=== PATIENT | male | born 1995 | race Caucasian/White ===

== ENCOUNTER 2019-03-03 07:28 | Inpatient (IN) | payer MEDICAID ==
[~2019-03-03] VITALS: Ht 167.6 cm; Wt 94.9 kg
[2019-03-03 08:47] VITALS: BP 112/78
[2019-03-03] MEDS ORDERED: HALO1 PO (09:02)
[2019-03-03] MEDS ORDERED: DIVA125T32 PO (09:02)
[2019-03-03] MEDS ORDERED: HALOPERIDOL 5 MG TABLET PO PRN (09:30)
[2019-03-03] MEDS ORDERED: LORazepam 2 MG TABLET PO PRN (09:30)
[2019-03-03] MEDS ORDERED: ZOLPIDEM TARTRATE 10 MG TABLET PO PRN (09:30)
[2019-03-03 16:14] VITALS: BP 142/91
[2019-03-03] MEDS: HALOPERIDOL 5 MG TABLET PO PRN (16:16)
[2019-03-03] MEDS: LORazepam 2 MG TABLET PO PRN (16:16)
[2019-03-03] MEDS: RisperiDONE 2 MG TABLET PO SCH (20:53)
[2019-03-03] MEDS: DIVALPROEX SODIUM 500 MG DR TABLET PO SCH (20:53)
[2019-03-04] MEDS ORDERED: CloNIDine HCL 0.1 MG TABLET PO PRN (06:30)
[2019-03-04] MEDS ORDERED: DOCUSATE SODIUM 100 MG CAPSULE PO PRN (06:30)
[2019-03-04] MEDS ORDERED: ALBUTEROL SULFATE HFA 90 MCG/PUFF 8 GM INHALER IH PRN (06:30)
[2019-03-04] MEDS ORDERED: ACETAMINOPHEN 325 MG TABLET PO PRN (06:30)
[2019-03-04] MEDS ORDERED: MAG HYDROX/AL HYDROX/SIMETH ES 30 ML SUSPENSION UDCUP PO PRN (06:30)
[2019-03-04] MEDS ORDERED: ONDANSETRON HCL 4 MG TABLET PO PRN (06:30)
[2019-03-04] MEDS ORDERED: NICOTINE 14 MG/24 HOUR PATCH TD PRN (06:30)
[2019-03-04] MEDS ORDERED: MAGNESIUM HYDROXIDE SUSPENSION 30 ML UDCUP PO PRN (06:30)
[2019-03-04] MEDS ORDERED: GuaiFENesin/D-METHORPHAN [SUGAR-FREE] 200-20MG/10 ML SYRUP UDCUP PO PRN (06:30)
[2019-03-04] MEDS ORDERED: PETROLATUM,WHITE 28 GM JELLY TP PRN (06:30)
[2019-03-04] MEDS ORDERED: LOPERAMIDE HCL 2 MG CAPSULE PO PRN (06:30)
[2019-03-04 06:46] VITALS: BP 101/59
[2019-03-04 08:00] VITALS: BP 122/67
[2019-03-04] MEDS: DIVALPROEX SODIUM 500 MG DR TABLET PO SCH ×2 (08:01→20:20)
[2019-03-04] MEDS: RisperiDONE 2 MG TABLET PO SCH ×2 (08:01→20:20)
[2019-03-04 16:04] VITALS: BP 123/75
[2019-03-04] MEDS: HALOPERIDOL 5 MG TABLET PO PRN (17:32)
[2019-03-04] MEDS: LORazepam 2 MG TABLET PO PRN (17:32)
[2019-03-05 07:10] VITALS: BP 115/72
[2019-03-05 07:24] LABS: BASOPHILS % (AUTO) 0.7 % (0.0-2.0); EOSINOPHILS % (AUTO) 1.7 % (1.0-6.0); HEMATOCRIT 43.2 % (41-53); HEMOGLOBIN 14.6 g/dL (13.5-17.5); LYMPHOCYTES # (AUTO) 2.5 K/uL (1.0-4.8); LYMPHOCYTES % (AUTO) 33.9 % (22.0-44.0); MEAN CORPUSCULAR HGB CONC 33.8 G/dL (31.0-37.0); MEAN CORPUSCULAR VOLUME 86 fL (80-100); MONOCYTES # (AUTO) 0.6 K/uL (0.1-1.0); MONOCYTES % (AUTO) 8.2 % (2.0-9.0); NEUTROPHILS # (AUTO) 4.1 K/uL (1.8-7.7); NEUTROPHILS % (AUTO) 55.5 % (40.0-70.0); PLATELET COUNT (AUTO) 215 K/uL (150-450); RED BLOOD CELL COUNT(AUTO) 5.03 MIL/uL (4.50-5.90); RED CELL DISTRIBUTION WIDTH 14.2 % (11.5-14.5)
[2019-03-05 07:49] LABS: HEMOGLOBIN A1C 5.5 % (4.5-6.2)
[2019-03-05 07:54] LABS: ALANINE AMINOTRANSFERASE 15 U/L (12-78); ALBUMIN 3.5 g/dL (3.4-5.0); ALKALINE PHOSPHATASE 60 U/L (46-116); ANION GAP 7 mmol/L (8-16); ASPARTATE AMINOTRANSFERASE 10 U/L (15-37); BILIRUBIN,TOTAL 0.2 mg/dL (0.1-1.0); CALCIUM, TOTAL 8.5 mg/dL (8.8-10.5); CARBON DIOXIDE 28 mmol/L (22-29); CHLORIDE 106 mmol/L (98-107); CHOL/HDL RATIO 2.5 (4.2-7.3); CHOLESTEROL 96 mg/dL (131-200); CREATININE 0.92 mg/dL (0.60-1.30); GLOMERULAR FILTR. RATE CALC > 60 mL/min (>60); GLUCOSE,RANDOM 84 mg/dL (70-110); HDL CHOLESTEROL 39 mg/dL (40-60); LDL CHOL (CALC.) 51 mg/dL (0-130); POTASSIUM 4.4 mmol/L (3.5-5.1); SODIUM SERUM 141 mmol/L (136-145); THYROID STIMULATING HORMONE 6.12 uIU/mL (0.36-3.74); TOTAL PROTEIN, SERUM 6.9 g/dL (6.4-8.2); TRIGLYCERIDES 28 mg/dL (15-150); UREA NITROGEN, BLOOD 14 mg/dL (7-18)
[2019-03-05 08:05] VITALS: BP 115/67
[2019-03-05] MEDS: RisperiDONE 2 MG TABLET PO SCH ×2 (08:09→20:21)
[2019-03-05] MEDS: DIVALPROEX SODIUM 500 MG DR TABLET PO SCH ×2 (08:09→20:21)
[2019-03-05] MEDS: HALOPERIDOL 5 MG TABLET PO PRN (12:28)
[2019-03-05 16:02] VITALS: BP 120/74
[2019-03-05] MEDS: LORazepam 2 MG TABLET PO PRN (20:21)
[2019-03-06 05:04] VITALS: BP 113/72
[2019-03-06] MEDS: RisperiDONE 2 MG TABLET PO SCH ×2 (08:31→20:15)
[2019-03-06] MEDS: DIVALPROEX SODIUM 500 MG DR TABLET PO SCH ×2 (08:31→20:15)
[2019-03-06] MEDS: LORazepam 2 MG TABLET PO PRN ×2 (11:10→20:15)
[2019-03-06] MEDS: HALOPERIDOL 5 MG TABLET PO PRN (11:10)
[2019-03-06 16:00] VITALS: BP 125/80
[2019-03-06] MEDS: ZOLPIDEM TARTRATE 10 MG TABLET PO PRN (20:16)
[2019-03-07 05:10] VITALS: BP 125/77
[2019-03-07 05:18] VITALS: BP 114/78
[2019-03-07 05:48] VITALS: BP 125/77
[2019-03-07] MEDS: DIVALPROEX SODIUM 500 MG DR TABLET PO SCH ×2 (08:23→20:11)
[2019-03-07] MEDS: RisperiDONE 2 MG TABLET PO SCH ×2 (08:25→20:11)
[2019-03-07] MEDS: HALOPERIDOL 5 MG TABLET PO PRN (14:14)
[2019-03-07] MEDS: LORazepam 2 MG TABLET PO PRN (14:15)
[2019-03-07 16:05] VITALS: BP 140/76
[2019-03-07] MEDS: ZOLPIDEM TARTRATE 10 MG TABLET PO PRN (21:54)
[2019-03-08 06:28] VITALS: BP 128/83
[2019-03-08 08:06] VITALS: BP 110/72
[2019-03-08] MEDS: RisperiDONE 2 MG TABLET PO SCH ×2 (08:37→20:16)
[2019-03-08] MEDS: DIVALPROEX SODIUM 500 MG DR TABLET PO SCH ×2 (08:38→20:15)
[2019-03-08] MEDS: IBUPROFEN 400 MG TABLET PO PRN ×2 (09:56→21:06)
[2019-03-08 16:08] VITALS: BP 133/83
[2019-03-08] MEDS: HALOPERIDOL 5 MG TABLET PO PRN (17:49)
[2019-03-08] MEDS: LORazepam 2 MG TABLET PO PRN (17:49)
[2019-03-08] MEDS: ZOLPIDEM TARTRATE 10 MG TABLET PO PRN (21:07)
[2019-03-09 00:56] VITALS: BP 119/78
[2019-03-09] MEDS: HALOPERIDOL 5 MG TABLET PO PRN ×2 (05:24→14:34)
[2019-03-09] MEDS: RisperiDONE 2 MG TABLET PO SCH ×2 (08:17→21:20)
[2019-03-09] MEDS: DIVALPROEX SODIUM 500 MG DR TABLET PO SCH ×2 (08:17→21:20)
[2019-03-09] MEDS: LORazepam 2 MG TABLET PO PRN (16:14)
[2019-03-09 16:20] VITALS: BP 142/87
[2019-03-09] MEDS: ZOLPIDEM TARTRATE 10 MG TABLET PO PRN (21:20)
[2019-03-10 06:05] VITALS: BP 113/70
[2019-03-10 08:23] VITALS: BP 140/74
[2019-03-10] MEDS: RisperiDONE 2 MG TABLET PO SCH ×2 (08:28→20:49)
[2019-03-10] MEDS: MULTIVITAMINS WITH MINERALS, THERAPEUTIC TABLET PO SCH (08:29)
[2019-03-10] MEDS: DIVALPROEX SODIUM 500 MG DR TABLET PO SCH ×2 (08:29→20:49)
[2019-03-10 16:00] VITALS: BP 124/73
[2019-03-10] MEDS: LORazepam 2 MG TABLET PO PRN ×2 (16:27→20:59)
[2019-03-10] MEDS: LITHIUM CARBONATE 300 MG CAPSULE PO SCH (16:27)
[2019-03-10] MEDS: ZOLPIDEM TARTRATE 10 MG TABLET PO PRN (20:49)
[2019-03-11 05:52] VITALS: BP 135/75
[2019-03-11] MEDS: LITHIUM CARBONATE 300 MG CAPSULE PO SCH ×2 (07:03→16:45)
[2019-03-11] MEDS: DIVALPROEX SODIUM 500 MG DR TABLET PO SCH ×2 (08:02→20:51)
[2019-03-11] MEDS: RisperiDONE 2 MG TABLET PO SCH ×2 (08:02→20:51)
[2019-03-11] MEDS: MULTIVITAMINS WITH MINERALS, THERAPEUTIC TABLET PO SCH (08:02)
[2019-03-11] MEDS: IBUPROFEN 400 MG TABLET PO PRN ×2 (08:04→21:00)
[2019-03-11 08:12] VITALS: BP 126/86
[2019-03-11 16:05] VITALS: BP 136/88
[2019-03-11] MEDS: LORazepam 2 MG TABLET PO PRN (16:46)
[2019-03-11] MEDS: ZOLPIDEM TARTRATE 10 MG TABLET PO PRN (20:51)
[2019-03-12 04:48] VITALS: BP 142/99
[2019-03-12] MEDS: IBUPROFEN 400 MG TABLET PO PRN (04:50)
[2019-03-12] MEDS: LITHIUM CARBONATE 300 MG CAPSULE PO SCH ×2 (07:00→16:54)
[2019-03-12 08:06] VITALS: BP 102/64
[2019-03-12] MEDS: RisperiDONE 2 MG TABLET PO SCH ×2 (08:35→21:00)
[2019-03-12] MEDS: DIVALPROEX SODIUM 500 MG DR TABLET PO SCH ×2 (08:36→21:00)
[2019-03-12] MEDS: MULTIVITAMINS WITH MINERALS, THERAPEUTIC TABLET PO SCH (08:36)
[2019-03-12] MEDS: LORazepam 2 MG TABLET PO PRN (10:55)
[2019-03-12 14:20] VITALS: BP 116/56
[2019-03-13] MEDS: LITHIUM CARBONATE 300 MG CAPSULE PO SCH ×2 (07:00→16:42)
[2019-03-13] MEDS: RisperiDONE 2 MG TABLET PO SCH ×2 (09:00→21:00)
[2019-03-13] MEDS: DIVALPROEX SODIUM 500 MG DR TABLET PO SCH ×2 (09:00→21:00)
[2019-03-13] MEDS: MULTIVITAMINS WITH MINERALS, THERAPEUTIC TABLET PO SCH (09:00)
== END 2019-03-13 21:00 | disposition short-term general hospital (02) | DRG 750 ==
LOC: B3A 09:26
PROVIDERS: ADMIT Psychiatry & Neurology Child & Adolescent Psychiatry; ATTEND Psychiatry & Neurology Child & Adolescent Psychiatry
DX: F20.0 Paranoid schizophrenia (principal); G93.40 Encephalopathy, unspecified; A41.9 Sepsis, unspecified organism; J18.9 Pneumonia, unspecified organism; G44.209 Tension-type headache, unspecified, not intractable; Z79.899 Other long term (current) drug therapy
CPT/HCPCS: 83036; 84443; 87081

== ENCOUNTER 2019-03-17 19:47 | Inpatient (IN) | payer MEDICAID ==
[~2019-03-17] VITALS: Ht 170.2 cm; Wt 93.6 kg
[2019-03-17 19:30] VITALS: BP 122/69
[2019-03-17 20:51] VITALS: BP 122/69
[2019-03-17] MEDS: RisperiDONE 4 MG TABLET PO SCH (21:34)
[2019-03-17] MEDS: DIVALPROEX SODIUM 500 MG DR TABLET PO SCH (21:35)
[2019-03-17] MEDS: LITHIUM CARBONATE 300 MG CAPSULE PO SCH (21:35)
[2019-03-17 22:45] LABS: APPEARANCE,URINE CLEAR (CLEAR); BILIRUBIN,URINE NEGATIVE (NEGATIVE); GLUCOSE, URINE (UA) NEGATIVE (NEGATIVE); KETONES,URINE NEGATIVE (NEGATIVE); LEUKOCYTE ESTERASE ,URINE NEGATIVE (NEGATIVE); NITRATE,URINE NEGATIVE (NEGATIVE); OCCULT BLOOD,URINE NEGATIVE (NEGATIVE); PH,URINE 6.5 (5.0-8.0); PROTEIN,URINE NEGATIVE (NEGATIVE); UROBILINOGEN,URINE 0.2 mg/dL (<=1.0)
[2019-03-17 22:49] LABS: AMPHET/METH SCREEN,URINE NEGATIVE (NEGATIVE); BARBITURATE SCREEN, URINE NEGATIVE (NEGATIVE); BENZODIAZEPINES SCREEN,URINE NEGATIVE (NEGATIVE); CANNABINOID SCREEN,URINE NEGATIVE (NEGATIVE); COCAINE SCREEN,URINE NEGATIVE (NEGATIVE); METHADONE SCREEN, URINE NEGATIVE (NEGATIVE); OPIATE SCREEN,URINE NEGATIVE (NEGATIVE)
[2019-03-17 22:52] LABS: PHENCYCLIDINE SCREEN,URINE NEGATIVE (NEGATIVE)
[2019-03-17] MEDS: ZOLPIDEM TARTRATE 10 MG TABLET PO PRN (22:54)
[2019-03-17] MEDS: AMOX TR/POT CLAV 500 MG/125 MG TABLET PO SCH (23:42)
[2019-03-18 07:32] LABS: EOSINOPHILS % (AUTO) 3.5 % (1.0-6.0); HEMATOCRIT 39.6 % (41-53); HEMOGLOBIN 13.3 g/dL (13.5-17.5); LYMPHOCYTES # (AUTO) 2.8 K/uL (1.0-4.8); LYMPHOCYTES % (AUTO) 32.8 % (22.0-44.0); MEAN CORPUSCULAR HEMOGLOBIN 29.1 pg (26.0-34.0); MEAN CORPUSCULAR HGB CONC 33.7 G/dL (31.0-37.0); MEAN CORPUSCULAR VOLUME 86 fL (80-100); MONOCYTES # (AUTO) 0.6 K/uL (0.1-1.0); MONOCYTES % (AUTO) 7.4 % (2.0-9.0); NEUTROPHILS # (AUTO) 4.6 K/uL (1.8-7.7); NEUTROPHILS % (AUTO) 55.3 % (40.0-70.0); PLATELET COUNT (AUTO) 227 K/uL (150-450); RED BLOOD CELL COUNT(AUTO) 4.59 MIL/uL (4.50-5.90); RED CELL DISTRIBUTION WIDTH 13.8 % (11.5-14.5)
[2019-03-18 07:39] LABS: HEMOGLOBIN A1C 5.7 % (4.5-6.2)
[2019-03-18 07:48] LABS: LITHIUM 0.36 mmol/L (0.60-1.20)
[2019-03-18 07:55] LABS: ALANINE AMINOTRANSFERASE 21 U/L (12-78); ALBUMIN 3.2 g/dL (3.4-5.0); ALKALINE PHOSPHATASE 54 U/L (46-116); ANION GAP 4 mmol/L (8-16); ASPARTATE AMINOTRANSFERASE 12 U/L (15-37); BILIRUBIN,TOTAL 0.1 mg/dL (0.1-1.0); CALCIUM, TOTAL 8.4 mg/dL (8.8-10.5); CARBON DIOXIDE 31 mmol/L (22-29); CHLORIDE 104 mmol/L (98-107); CHOL/HDL RATIO 3.6 (4.2-7.3); CHOLESTEROL 91 mg/dL (131-200); CREATININE 1.03 mg/dL (0.60-1.30); FREE T4 (FREE THYROXINE) 0.97 ng/dL (0.76-1.46); GLOMERULAR FILTR. RATE CALC > 60 mL/min (>60); GLUCOSE,RANDOM 88 mg/dL (70-110); HDL CHOLESTEROL 25 mg/dL (40-60); LDL CHOL (CALC.) 57 mg/dL (0-130); POTASSIUM 3.9 mmol/L (3.5-5.1); SODIUM SERUM 139 mmol/L (136-145); THYROID STIMULATING HORMONE 5.67 uIU/mL (0.36-3.74); TRIGLYCERIDES 46 mg/dL (15-150); UREA NITROGEN, BLOOD 13 mg/dL (7-18)
[2019-03-18 08:43] VITALS: BP 116/70
[2019-03-18] MEDS: DIVALPROEX SODIUM 500 MG DR TABLET PO SCH ×2 (10:54→20:13)
[2019-03-18] MEDS: LITHIUM CARBONATE 300 MG CAPSULE PO SCH ×2 (10:54→16:50)
[2019-03-18] MEDS: AMOX TR/POT CLAV 500 MG/125 MG TABLET PO SCH ×2 (10:54→16:51)
[2019-03-18] MEDS: RisperiDONE 4 MG TABLET PO SCH ×2 (10:55→20:13)
[2019-03-18 17:53] VITALS: BP 98/56
[2019-03-18] MEDS: ZOLPIDEM TARTRATE 10 MG TABLET PO PRN (20:37)
[2019-03-19] MEDS: AMOX TR/POT CLAV 500 MG/125 MG TABLET PO SCH ×4 (00:09→23:37)
[2019-03-19 00:30] VITALS: BP 117/75
[2019-03-19] MEDS: RisperiDONE 4 MG TABLET PO SCH ×2 (09:49→20:19)
[2019-03-19] MEDS: DIVALPROEX SODIUM 500 MG DR TABLET PO SCH ×2 (09:50→20:19)
[2019-03-19] MEDS: LITHIUM CARBONATE 300 MG CAPSULE PO SCH ×2 (09:50→16:14)
[2019-03-19 09:57] VITALS: BP 113/65
[2019-03-19] MEDS: LORazepam 2 MG TABLET PO PRN (12:17)
[2019-03-19] MEDS: HALOPERIDOL 5 MG TABLET PO PRN (12:17)
[2019-03-19 17:35] VITALS: BP 101/65
[2019-03-19] MEDS: ZOLPIDEM TARTRATE 10 MG TABLET PO PRN (21:36)
[2019-03-20] MEDS: DIVALPROEX SODIUM 500 MG DR TABLET PO SCH ×2 (09:09→20:12)
[2019-03-20] MEDS: LITHIUM CARBONATE 300 MG CAPSULE PO SCH ×2 (09:09→16:05)
[2019-03-20] MEDS: RisperiDONE 4 MG TABLET PO SCH ×2 (09:09→20:12)
[2019-03-20] MEDS: AMOX TR/POT CLAV 500 MG/125 MG TABLET PO SCH ×3 (09:09→23:37)
[2019-03-20 09:38] VITALS: BP 111/65
[2019-03-20 16:49] VITALS: BP 128/65
[2019-03-20] MEDS: LORazepam 2 MG TABLET PO PRN (21:00)
[2019-03-20] MEDS: ZOLPIDEM TARTRATE 10 MG TABLET PO PRN (21:46)
[2019-03-21] MEDS: RisperiDONE 4 MG TABLET PO SCH ×2 (10:02→20:15)
[2019-03-21] MEDS: LITHIUM CARBONATE 300 MG CAPSULE PO SCH ×2 (10:02→16:19)
[2019-03-21] MEDS: DIVALPROEX SODIUM 500 MG DR TABLET PO SCH ×2 (10:02→20:15)
[2019-03-21] MEDS: AMOX TR/POT CLAV 500 MG/125 MG TABLET PO SCH ×3 (10:02→23:50)
[2019-03-21 10:14] VITALS: BP 153/95
[2019-03-21 17:15] VITALS: BP 127/75
[2019-03-21] MEDS: LORazepam 2 MG TABLET PO PRN (21:42)
[2019-03-21] MEDS: HALOPERIDOL 5 MG TABLET PO PRN (22:13)
[2019-03-22] MEDS: AMOX TR/POT CLAV 500 MG/125 MG TABLET PO SCH (08:59)
[2019-03-22] MEDS: LITHIUM CARBONATE 300 MG CAPSULE PO SCH (09:00)
[2019-03-22] MEDS: DIVALPROEX SODIUM 500 MG DR TABLET PO SCH (09:00)
[2019-03-22] MEDS: RisperiDONE 4 MG TABLET PO SCH (09:00)
[2019-03-22 09:49] VITALS: BP 126/76
[2019-03-22] MEDS ORDERED: AMOX-426 PO (13:50)
[2019-03-22] MEDS ORDERED: DIVA-78 PO (13:51)
[2019-03-22] MEDS ORDERED: LITH300C3 PO (13:52)
[2019-03-22] MEDS ORDERED: RISP4 PO (13:52)
== END 2019-03-22 15:30 | disposition home or self-care (01) | DRG 885 ==
LOC: 3EI 19:56
PROVIDERS: ADMIT Psychiatry & Neurology Child & Adolescent Psychiatry; ATTEND Psychiatry & Neurology Child & Adolescent Psychiatry
DX: F20.0 Paranoid schizophrenia (principal); D64.9 Anemia, unspecified; E03.9 Hypothyroidism, unspecified; E83.51 Hypocalcemia; F41.9 Anxiety disorder, unspecified; Z59.0 Homelessness; Z91.030 Bee allergy status; Z91.010 Allergy to peanuts
CPT/HCPCS: 80307; 83036; 84439; 84443; 87081